=== PATIENT | male | born 1940 | race Caucasian/White ===

== ENCOUNTER 2022-01-26 01:22 | Emergency (ER) | payer MEDICARE ==
[2022-01-26] MEDS ORDERED: methylPREDNISolone Sod Succ/PF 125 MG/2 ML VIAL ONE ×2 (01:34→01:36)
[2022-01-26] MEDS ORDERED: Magnesium 2 GM/50 ML BAG (IN WATER) ONE ×2 (01:34→01:36)
[2022-01-26] MEDS ORDERED: Ondansetron PF 4 MG/2 ML Vial ONE (02:09)
[2022-01-26 02:13] LABS: #Basophils 0.2 thou/uL (0.0-0.2); #Eosinphils 0.1 thou/uL (0.0-0.7); #Monocytes 1.6 thou/uL (0.11-0.59); %Basophils 1.4 % (0.0-1.0); %Eosinophils 0.6 % (0.0-10.0); %Lymphocytes 16.7 % (21.0-51.0); %Monocytes 13.3 % (0.0-10.0); Hemoglobin 12.7 g/dL (14.0-18.0); Mean Corpuscular HGB CONC 31.9 g/dL (32.0-36.0); Mean Corpuscular Hemoglobin 29.2 pg (27.0-31.0); Mean Corpuscular Volume 91.4 fL (78.0-98.0); Mean Platelet Volume 8.8 fL (7.4-10.4); Platelet Count 212 thou/uL (130-400); RBC Distribution Width 16.6 % (11.5-14.5); Red Blood Cell (RBC) Count 4.37 mill/uL (4.70-6.10); White Blood Cell (WBC) Count 11.8 thou/uL (4.8-10.8)
[2022-01-26] MEDS ORDERED: cefTRIAXone\\ROCEPHIN 2 GM VIAL ONE (02:21)
[2022-01-26] MEDS ORDERED: Azithromycin 500 MG VIAL ONE (02:21)
[2022-01-26] MEDS ORDERED: Aspirin Chewable 81 MG TAB ONE ×2 (02:21→03:05)
[2022-01-26 02:28] LABS: ALT (SGPT) 21 U/L (8-55); AST (SGOT) 29 U/L (5-34); Albumin 4.5 g/dL (3.4-4.8); Alkaline Phosphatase 48 U/L (40-110); Anion Gap 18 mmol/L (10-20); BUN (Urea Nitrogen) 14 mg/dL (8.4-25.7); Bilirubin, Total 0.6 mg/dL (0.2-1.2); Calc. Creatinine Clearance 0 mL/min (70-130); Calcium 8.7 mg/dL (7.8-10.44); Carbon Dioxide 29 mmol/L (23-31); Chloride 98 mmol/L (98-107); Globulin 2.5 g/dL (2.4-3.5); Glucose 193 mg/dL (83-110); Potassium 4.9 mmol/L (3.5-5.1); Sodium 140 mmol/L (136-145)
[2022-01-26] MEDS ORDERED: Furosemide 40 MG/4 ML VIAL ONE (02:52)
[2022-01-26] MEDS ORDERED: Nitroglycerin 2% Ointment 1 INCH/1 GM Packet ONE (02:52)
[2022-01-26] MEDS ORDERED: Fentanyl 100 MCG/2 ML VIAL ONE (03:05)
[2022-01-26 03:22] LABS: CKMB 27.2 ng/mL (0-6.6)
[2022-01-26] MEDS ORDERED: Heparin 10,000 UNITS/1 ML VIAL ONE (03:24)
[2022-01-26] MEDS ORDERED: Heparin 25,000 units/D5W 500 ML ONE (03:24)
[2022-01-26 03:27] LABS: Prothrombin Time 13.7 sec (12.0-14.7)
[2022-01-26 03:28] LABS: PTT 30.7 sec (22.9-36.1)
[2022-01-26 03:50] LABS: SARS-CoV-2 NAA Rapid Test Not Detected (NotDetected)
== END 2022-01-26 03:55 | disposition short-term general hospital (02) ==
LOC: BURERS 01:22
DX: J18.9 Pneumonia, unspecified organism (principal); J44.1 Chronic obstructive pulmonary disease with (acute) exacerbation; I21.4 Non-ST elevation (NSTEMI) myocardial infarction; R00.0 Tachycardia, unspecified; Z20.822 Contact with and (suspected) exposure to COVID-19
CPT/HCPCS: 71045; 80053; 82553; 83605; 83880; 84484; 85025; 85610; 85730; 87040; 87149 ×2; 87804 ×2; 93005; 96365; 96375; 99285; U0002; 36415; J0456; J0696; J1644; J1940; J2405; J2930; J3010; J3475; J7620

== ENCOUNTER 2025-06-03 21:42 | Emergency (ER) | payer MEDICARE | END 2025-06-03 22:26 | disposition home or self-care (01) | LOC: BURERS 21:42 | DX: H11.32 Conjunctival hemorrhage, left eye (principal); I11.0 Hypertensive heart disease with heart failure; I50.9 Heart failure, unspecified; J44.9 Chronic obstructive pulmonary disease, unspecified; E11.9 Type 2 diabetes mellitus without complications; E78.5 Hyperlipidemia, unspecified; Z87.891 Personal history of nicotine dependence; Z79.899 Other long term (current) drug therapy; Z79.4 Long term (current) use of insulin; Z79.51 Long term (current) use of inhaled steroids; Z79.84 Long term (current) use of oral hypoglycemic drugs; Z79.82 Long term (current) use of aspirin | CPT/HCPCS: 99282 ==